=== PATIENT | female | born 1990 | race African-American/Black ===

== ENCOUNTER 2021-08-12 15:28 | Emergency (ER) | payer OTHER ==
[~2021-08-12] VITALS: Ht 165.1 cm; Wt 67.8 kg
[2021-08-12 15:48] VITALS: BP 133/75
[2021-08-12] MEDS ORDERED: HYDR-3965 PO (18:55)
[2021-08-12] MEDS ORDERED: HYDROcodone/acetaminophen 5mg/325mg tablet PO ONE (18:55)
[2021-08-12] MEDS ORDERED: ibuprofen tablet 400 MG TABLET PO ONE (18:55)
== END 2021-08-12 19:17 | disposition home or self-care (01) ==
LOC: ER 15:29
DX: R07.89 Other chest pain (principal); M54.2 Cervicalgia; M54.9 Dorsalgia, unspecified; Z79.899 Other long term (current) drug therapy; W22.11XD Striking against or struck by driver side automobile airbag, subsequent encounter
CPT/HCPCS: 99283